=== PATIENT | male | born 1970 ===

== ENCOUNTER 2020-08-17 16:45 | Emergency (ER) | payer SELFPAY ==
[~2020-08-17] VITALS: Ht 175.3 cm; Wt 72.7 kg
[2020-08-17 16:47] VITALS: BP 111/72
== END 2020-08-17 17:09 | disposition home or self-care (01) ==
LOC: EMS 16:45
DX: M71.21 Synovial cyst of popliteal space [Baker], right knee (principal); M79.89 Other specified soft tissue disorders; F17.210 Nicotine dependence, cigarettes, uncomplicated
CPT/HCPCS: Z7502